=== PATIENT | male | born 1950 | race Caucasian/White ===

== ENCOUNTER → 2021-08-11 07:29 | Outpatient (BNVA) | payer MEDICARE, SELFPAY | PROVIDERS: PCP Family Medicine; Referring Provider Family Medicine; Visit Provider Physical Therapy Assistant | DX: Z86.010 Personal history of colon polyps (principal); Z12.11 Encounter for screening for malignant neoplasm of colon ==

== ENCOUNTER 2021-09-26 07:13 | Day surgery (SDC) | payer MEDICARE, SELFPAY ==
--- NOTE | 2021-09-25 19:36 | W.COLOREPORT ---
Colonoscopy Report Date of procedure: 09/26/21 Pre-op diagnosis general: Serrated A Post-op diagnosis procedure note: other (Pandivertic) Surgeon: Georgia Villalpando Anesthesia Type: General:No Airway Estimated blood loss (mL): 0 Pathology: none sent Complications: None Disposition: same day Prep: Miralax/Dulcolax Retraction Time: 8 mins Procedure Description: After informed consent was obtained the patient was taken to the procedure room and placed in a left decubitous position. Monitors were applied and a time out was done. The patients name, date of , procedure, allergies to medications and metal in their body was reviewed. The patient was then sedated. Once sedated and comfortable a rectal exam was done. External exam was normal. Internal exam revealed a normal sphincter tone and no palpable masses. The prostate nl. The scope was then introduced and retrofelexed. No internal hemorrhoids were identified. The scope was then advanced to the cecum w/out difficulty. The TI and appendiceal orifice were identified. The prep was BB PS 2 in the cecum and right colon, the BPS 3 in all other segments for a total of 8. The scope was then slowly retracted over 8 minutes back into the rectum. There were no polyps visualized today. The mucosa appears pink and healthy with a normal vascular pattern. He does have diverticula; the majority are concentrated in the sigmoid colon, to a moderate degree. However there are a few scattered diverticula that do carry all the way over to the right colon. There are no signs of active bleeding or infection. The scope was removed and the patient was woken up and taken back to Same day surgery in stable condition. The patient tolerated the procedure well and there were no immediate complications. Follow up: The patient should follow up in 5 years unless they develop changes in bowel habits or other new gastrointestinal complaints.
--- NOTE | 2021-09-25 19:37 | HPE_ITS ---
Assessment and Plan Assessment and plan (1) Adenomatous colon polyp: Status: Acute Assessment and plan: Informed consent is obtained for the procedural (explained in simple layman's terms that the pt. and/or family could understand) explaining risks vs benefits and alternatives to the procedure and consequences if we do not do the procedure and need/rational for the procedure. Risks include but are not limited to: bleeding, infection, perforation of esophagus, stomach, colon, small intestines, bronchus or trachea, or PTX. This would necessitate emergency surgery to repair the damage w/ possible ostomy; and other associated complications w/ the required surgery. Also complications of anesthesia including aspiration, MN/CVA/. (2) History of narrow angle glaucoma: (3) Hyperlipidemia: (4) Hypertension: (5) Nicotine dependence: History of Present Illness Narrative: Mr. Graves is a pleasant 71-year-old gentleman who is here today to discuss a colonoscopy.? His last colonoscopy was in 2016 and he was noted to have a sessile serrated adenoma.? He has done well since then.? He denies any melena, hematochezia, abdominal pain, unintentional weight loss or any family history of colon cancer.? He has not had any issues with the anesthesia used in the past. His past medical history is significant for hypertension and hyperlipidemia.? He does still occasionally smoke.? He denies any chest pain or shortness of breath with activity or at rest. Anesthesia: general (without airway) Previous surgical intolerances: No Previous surgical complications: No Pulmonary risk factors: age > 60 Date of surgery: 09/08/21 Planned procedure: Yes Sleep apnea risks: No Can climb one flight of stairs (12-13 steps) in less than 30 seconds without stopping and without symptoms: Yes The surgery proposed for this patient is: low risk Active cardiac conditions: none Active risk factors: none ASA (acetylsalicylic acid): not used Beta blockers: not used Patient is here today for colonoscopy for a sessile serrated in 2016. He did complete the bowel prep. The results are clear yellow effluent. He is not currently having any abdominal pain or nausea. He is not currently having any chest pain, shortness of breath, productive cough, fever or chills, or shortness of breath. He denies any recent trauma or recent ER visits. He denies any changes in his medication or health status to the best of his knowledge. All questions are answered to his satisfaction. And he is stable for proposed procedure today. Informed consent is obtained for the procedural (explained in simple layman's terms that the pt. and/or family could understand) explaining risks vs benefits and alternatives to the procedure and consequences if we do not do the procedure and need/rational for the procedure. Risks include but are not limited to: bleeding, infection, perforation of esophagus, stomach, colon, small intestines, bronchus or trachea, or PTX. This would necessitate emergency surgery to repair the damage w/ possible ostomy; and other associated complications w/ the required surgery. Also complications of anesthesia including aspiration, MN/CVA/. Review of Systems All systems reviewed & are unremarkable except as noted in HPI and below PFSH All Active Problems Adenomatous colon polyp (Acute) Screening for colon cancer (Acute) Medical History Erectile dysfunction History of narrow angle glaucoma Hyperlipidemia Hypertension Nicotine dependence Surgical History History of colonoscopy 2006 in [place] was normal 2016 sessile serrated adenoma. History of excision of pilonidal cyst Social History Smoking/Tobacco Use Status: Current-Occasional Tobacco Type: cigars Smoking risk assessment performed?: Yes Alcohol Intake: former Drug use: Never Substance use type: does not use Do you feel safe at home: Yes Do you feel safe in your relationship?: Yes Meds Allergies and Home Medications Allergies Allergy/AdvReac Type Severity Reaction Status Date / Time No Known Allergies Allergy Unverified 09/26/21 07:24 Home Medications Medication Instructions Recorded Confirmed Type atorvastatin 40 mg tablet 40 mg PO DAILY 12/27/20 09/26/21 History multivitamin 1 tab PO DAILY 12/27/20 09/26/21 History sildenafil 100 mg tablet (Viagra) 100 mg PO DAILY PRN 12/27/20 09/25/21 History aspirin 81 mg capsule,delayed 81 mg PO DAILY 09/25/21 09/25/21 History release Exam Narrative Exam Narrative: PHYSICAL EXAM GENERAL APPEARANCE: Alert, healthy appearance, oriented, in no acute distress SKIN: No rashes.? No breakdown HYDRATION: Well hydrated HEAD, EYES, EARS, NECK, THROAT: Head is normocephalic, pupils equal, round, reactive to light and accommodation, ocular movement intact, sclera clear and no jaundice. ?Dentition intact. No sore throat.? No jaw pain. No thrush NECK: Supple, Trachea midline. No JVD. LUNGS: normal respiration/nl chest excursion. ?Clear to auscultation B/l no R/R/W ?HEART: Regular rate and rhythm, EXTREMITY: No edema or cyanosis? no leg pain, redness, swelling.? No IV infiltration ABDOMEN: non tender to palpation, no masses or distention, no hernias. Normal bowel sounds NEURO: no focal neuro deficits. CBC No Data to Display Comprehensive Metabolic Panel No Data to Display Diabetes results No Data to Display Thyroid results Thyroid Dysfunction Results: No Data to Display
--- NOTE | 2021-09-25 19:53 | PDOC.DSDIS_ITS ---
Discharge Plan Disposition Patient Disposition: HOME Condition: Good Discharge Details Reason For Visit: colon scope Attending Provider: Georgia Villalpando Primary Care Provider: Martha Obregon Home Meds and New Rx's Prescriptions: Continued atorvastatin 40 mg tablet 40 mg PO DAILY sildenafil [Viagra] 100 mg tablet 100 mg PO DAILY PRN Rx Instructions: administer 30 minutes to 4 hours before activity multivitamin Tablet 1 tab PO DAILY aspirin 81 mg Capsule,Delayed Release(Dr/Ec) 81 mg PO DAILY Discontinued bisacodyl [Dulcolax (bisacodyl)] 5 mg tablet,delayed release (DR/EC) 5 mg PO ONCE Qty: 4 0RF Rx Instructions: Take according to provider's instructions for colonoscopy prep. polyethylene glycol 3350 17 gram/dose powder 17 g PO ONCE Qty: 238 0RF Rx Instructions: To be taken as directed by prescriber's office for colonoscopy prep. Discharge Instructions Additional Instructions: DSU Colonoscopy Post- Op Instructions Instructions for Everyone who is given Anesthesia: For your safety, please do the following for the next twenty-four (24) hours: *Do Not operate a motor vehicle (car, truck, motorcycle, etc.) *Do Not drink alcoholic beverages or use any recreational drugs for the first 24 hours or while taking pain medications. The medications in your body may have a reaction that can be dangerous. *Do Not make any important decisions or sign any important papers. Findings: diverticula no polyps Follow up: Repeat colonoscopy in 5 years time if still healthy for anesthesia. 1. No lifting over 20 pounds or strenuous activity for the first 24 hours after your procedure. After 24 hours there are no restrictions on your activity but you may feel fatigued for a few days. 2. After you arrive home you may have a light meal and return to your normal diet as you can tolerate it without feeling sick to your stomach. 3. You may have a bloated, gaseous feeling in your belly (abdomen) after a colonoscopy. Passing gas and belching will help. Walking or lying down on your left side with your knees flexed may relieve the discomfort. Call the office at [phone] (Office) or [phone] (Hospital) right away if you notice any of the following: a.Vomiting of blood or ?coffee ground stools?. b.Rectal bleeding 1Tbsp, blood clots or continuous bleeding. c.Severe belly (abdominal) pain. d.A hard distended belly (abdomen) and an inability to pass gas. 4. Please don?t expect to have a normal BM (bowel movement) for 2-3 days after your procedure. 5. If there are questions regarding the findings of your procedure, please contact your doctor 6. If you are unable to contact your doctor with a problem, contact the hospital at [phone]. 7. Continue all your regular medications unless directed otherwise. I understand the above instructions and have no questions. Signature of Patient or Adult Escort Name of Responsible Adult Escort Signature of Nurse Date/Time Activity:: see above Diet:: see above Discharge Orders Discharge Orders: Discharge Order (Routine); Ordered 09/25/21 Ordered By: Georgia Villalpando DS: Diagnosis Discharge Diagnosis (1) Adenomatous colon polyp: Status: Acute (2) History of narrow angle glaucoma: (3) Hyperlipidemia: (4) Hypertension: (5) Nicotine dependence: (6) Diverticula of colon: Status: Acute
[2021-09-26 07:25] VITALS: BP 152/96; PULSE 107; RESP 18; TEMP 36.3; O2SAT 98
[2021-09-26] MEDS: Lactated Ringers 1,000 ML 80 ML IV (07:47)
--- NOTE | 2021-09-26 08:19 | W.ANESPRE ---
General Info Date of Service Date Performed: 09/26/21 Height: 5 ft 10.5 in Weight: 78.5 kg Body Mass Index (BMI): 24.5 Surgical Procedure: Operation Date: 09/26/21 08:50 Proposed Procedure Side Surgeon p Colonoscopy Georgia Villalpando DO Meds Allergies and Home Medications Allergies Allergy/AdvReac Type Severity Reaction Status Date / Time No Known Allergies Allergy Unverified 09/26/21 07:24 Home Medication Medication Instructions Recorded atorvastatin 40 mg tablet 40 mg PO DAILY 12/27/20 multivitamin 1 tab PO DAILY 12/27/20 sildenafil 100 mg tablet (Viagra) 100 mg PO DAILY PRN 12/27/20 aspirin 81 mg capsule,delayed 81 mg PO DAILY 09/25/21 release Current Visit Medications: Current Medications Generic Name Dose Route Start Last Admin Trade Name Freq PRN Reason Stop Dose Admin Hyoscyamine Sulfate 0.125 mg 09/25/21 19:35 Hyoscyamine 0.125 Mg Sl/Oral/Chew SL DIRECTED PRN Ringer's Solution 1,000 mls @ 80 mls/hr 09/26/21 06:00 09/26/21 07:47 IV 10/25/21 23:59 80 mls/hr INFUSION AKI Administration IV Miscellaneous Supplies 1 each 09/26/21 06:00 Iv Access IV 10/25/21 23:59 DIRECTED AKI Ondansetron HCl 4 mg 09/25/21 19:35 Ondansetron 4 Mg/2 Ml Vial IVP Q4H PRN PRN Nausea / Vomiting Sodium Chloride 0 ml 09/26/21 06:00 Normal Saline Flush 10 Ml Syr IV 10/25/21 23:59 PRN PRN Sodium Chloride 0 ml 09/26/21 06:00 Normal Saline 10 Ml Vial IJ 10/25/21 23:59 DIRECTED PRN Sterile Water 0 ml 09/26/21 06:00 Water,Injection,Sterile 10 Ml Vial IJ 10/25/21 23:59 DIRECTED PRN PFSH Active Problems Active Problems: Problem Status Onset Code Adenomatous colon polyp D12.6 Screening for colon cancer Z12.11 Medical History Medical History Erectile dysfunction History of narrow angle glaucoma Hyperlipidemia Hypertension Nicotine dependence Surgical History Surgical History History of colonoscopy 2006 in [place] was normal 2016 sessile serrated adenoma. History of excision of pilonidal cyst Tobacco Smoking/Tobacco Use Status: Current-Occasional Tobacco Type: cigars Alcohol Alcohol Intake: former Substance Use Substance use: Never Substance use type: does not use Vital Signs and Lab Results Vital Signs Most Recent Vital Signs in EMR: Most Recent Vital Signs Temp Pulse Resp BP Pulse Ox 36.3 C L 107 H 18 152/96 H 98 09/26/21 07:25 09/26/21 07:25 09/26/21 07:25 09/26/21 07:25 09/26/21 07:25 Lab Results Blood Type / Crossmatch: No Data to Display Complete Blood Count: No Data to Display Complete Metabolic Panel: No Data to Display Liver Function Panel: No Data to Display Coagulation Panel: No Data to Display Cardiac Panel: No Data to Display Arterial Blood Gas: No Data to Display Venous Blood Gas: No Data to Display Pancreas Panel: No Data to Display Thyroid Panel: No Data to Display Infectious Disease: No Data to Display Blood Cultures: No Data to Display Toxicology Panel: No Data to Display Anesthesia Assessment and Plan Anesthesia History Personal History: No History of Anesthesia Complications Family History: No Family History of Anesthesia Complications Exercise Tolerance Exercise Tolerance: Metabolic Equivalents>4 Pertinent Negatives Pertinent Negatives: No Symptoms of GERD Cardiac & Pulmonary Exam Cardiac Exam: Normal S1/S2 Heart Sounds Pulmonary Exam: Clear Bilateral Breath Sounds Implantable Cardiac Device Does patient have a Pacemaker or an ICD?: No Airway Exam Known Difficult Airway: No Mallampati Class: 1 Mouth Opening: Normal (> 3cm) Thyromental Distance: Greater than 3 cm Facial Hair: Full Prasad Neck Range of Motion: Full ROM Neck Circumference: Normal Teeth Condition: Normal Dentition ASA Classification ASA Score: ASA 2 Emergency Case?: No NPO Status NPO Status: NPO Clears >2 hours, Solids >8 hours Anesthesia Plan Resuscitation Status: Full Code Anesthesia Technique: General Anesthesia Airway Planned: Natural Airway Monitors Used: Standard Monitors
[2021-09-26 08:21] VITALS: BMI 24.5
[2021-09-26 09:32] VITALS: BP 102/69; PULSE 76; RESP 14; TEMP 36.6; O2SAT 95
[2021-09-26 10:05] VITALS: BP 110/72; PULSE 80; RESP 16; TEMP 36.5; O2SAT 96
--- NOTE | 2021-09-26 10:35 | W.ANESPOSTOP ---
Postoperative Evaluation Date, Time and Location Date Performed: 09/26/21 Time Performed: 10:35 Patient Location: Day Surgery Unit Vital Signs Most Recent Imported Vital Signs: Most Recent Vital Signs Temp Pulse Resp BP Pulse Ox 36.5 C 80 16 110/72 96 09/26/21 10:05 09/26/21 10:05 09/26/21 10:05 09/26/21 10:05 09/26/21 10:05 Pain Score Most Recent Pain Score: Most Recent Pain Score Pain Level 0 09/26/21 10:05 Assessment Mental Status: Awake (Alert & Oriented to Patient Baseline) Airway and Respiratory Function: Patent airway with normal (patient baseline) respiratory exam Cardiovascular Function: Hemodynamically Stable Hydration Status: Adequately Hydrated Nausea & Vomiting: No Nausea or Vomiting Pain: Pt. Denies Any Pain Peripheral Nerve Block: Patient did not receive a nerve block
== END 2021-09-26 10:36 | disposition home or self-care (01) ==
PROVIDERS: PCP Family Medicine; Visit Provider Surgery
PROC: 0DJD8ZZ Inspection of Lower Intestinal Tract, Via Natural or Artificial Opening Endoscopic (ICD-10-PCS; CPT 45378; principal; 2021-09-26 08:45)
DX: Z12.11 Encounter for screening for malignant neoplasm of colon (principal); Z86.010 Personal history of colon polyps; I10 Essential (primary) hypertension; E78.5 Hyperlipidemia, unspecified; F17.210 Nicotine dependence, cigarettes, uncomplicated; K57.30 Diverticulosis of large intestine without perforation or abscess without bleeding
CPT/HCPCS: G0105

== ENCOUNTER 2023-08-02 15:36 | Outpatient (REF) | payer MEDICARE, SELFPAY ==
[2023-08-02 15:16] LABS: Bilirubin Negative (Negative); Blood Moderate (Negative); Clarity Clear (Clear); Glucose Negative (Negative); Ketones Negative (Negative); Leukocyte Esterase Negative (Negative); Nitrite Negative (Negative); Urobilinogen 0.2 mg/dL (Up to 0.2); pH 5.5 (5-8)
[2023-08-02 15:42] LABS: Epithelial Cells Rare HPF (Negative); RBC 0-2 HPF (0-2); WBC 0-2 HPF (0-5)
[2023-08-02 15:43] LABS: Bacteria Negative HPF (Negative); C & S Indicated? No; Casts Negative LPF (Negative); Crystals Negative HPF (Negative); Mucus Negative (Negative)
== END 2023-08-02 15:37 | disposition home or self-care (01) ==
LOC: LBN 15:36
PROVIDERS: PCP Family Medicine; Visit Provider Family Medicine
DX: R31.21 Asymptomatic microscopic hematuria (principal)
CPT/HCPCS: 81003; 81015

== ENCOUNTER → 2023-08-14 04:30 | Outpatient (CLI) | payer MEDICARE, SELFPAY ==
--- NOTE | 2023-08-14 | DI.US_ITS ---
Exam(s) US RENAL EXAM: US RENAL CLINICAL HISTORY: ASYMPTOMATIC MICROSCOPIC HEMATURIA, R31.21. TECHNIQUE: Curry scale, color and spectral Doppler were used. COMPARISON: No exams were available for comparison FINDINGS: Right kidney: 12.1cm Echogenicity: Normal Hydronephrosis: No Cyst or mass: No Nephrolithiasis: No Left kidney: 11.1cm Echogenicity: Normal Hydronephrosis: No Cyst or mass: No Nephrolithiasis: No Bladder:Normal. Both ureteral jets were visualized. Prevoid vol:228 cc Postvoid vol:31 cc Prostate enlarged with volume of 45 cc. IMPRESSION: Negative renal ultrasound. Enlarged prostate. Mildly elevated postvoid residual. DATA REPOSITORY:
== END ==
PROVIDERS: PCP Family Medicine; Visit Provider Family Medicine
DX: R31.21 Asymptomatic microscopic hematuria (principal)
CPT/HCPCS: 76770

== ENCOUNTER → 2024-04-07 12:57 | Outpatient (BNVA) | payer MEDICARE, SELFPAY | PROVIDERS: PCP Family Medicine; Referring Provider Family Medicine; Visit Provider Nurse Practitioner Gerontology | DX: R31.21 Asymptomatic microscopic hematuria (principal); N42.89 Other specified disorders of prostate | CPT/HCPCS: 81003; 99215 ==

== ENCOUNTER 2024-04-07 16:21 | Outpatient (CLI) | payer MEDICARE, SELFPAY ==
[2024-04-07 22:46] LABS: PSA, Diagnostic 8.5 ng/mL (<=6.5)
== END 2024-04-07 16:22 | disposition home or self-care (01) ==
LOC: LBO 16:26
PROVIDERS: PCP Family Medicine; Visit Provider Nurse Practitioner Gerontology
DX: R31.21 Asymptomatic microscopic hematuria (principal); N42.89 Other specified disorders of prostate
CPT/HCPCS: 36415; 81003; 99215; 84153

== ENCOUNTER 2024-04-07 18:29 | Outpatient (REF) | payer MEDICARE, SELFPAY ==
[2024-04-07 16:29] LABS: Bilirubin Negative (Negative); Blood Small (Negative); Clarity Clear (Clear); Glucose Negative (Negative); Ketones Negative (Negative); Leukocyte Esterase Negative (Negative); Nitrite Negative (Negative); Specific Gravity 1.015 (1.005-1.025); Urobilinogen 0.2 mg/dL (Up to 0.2); pH 5.5 (5-8)
[2024-04-07 16:40] LABS: Bacteria Negative HPF (Negative); C & S Indicated? No; Crystals Negative HPF (Negative); Epithelial Cells Negative HPF (Negative); Mucus Negative (Negative); WBC 0-2 HPF (0-5)
== END 2024-04-07 18:30 | disposition home or self-care (01) ==
LOC: LBN 18:29
PROVIDERS: PCP Family Medicine; Visit Provider Nurse Practitioner Gerontology
DX: R31.21 Asymptomatic microscopic hematuria (principal)
CPT/HCPCS: 81003; 81015

== ENCOUNTER → 2024-05-07 07:43 | Outpatient (BNVA) | payer MEDICARE, SELFPAY | PROVIDERS: PCP Family Medicine; Referring Provider Family Medicine; Visit Provider Nurse Practitioner Gerontology | DX: N42.89 Other specified disorders of prostate (principal); R31.21 Asymptomatic microscopic hematuria; R97.20 Elevated prostate specific antigen [PSA] | CPT/HCPCS: 99213 ==

== ENCOUNTER 2024-05-14 02:13 | Outpatient (CLI) | payer MEDICARE, SELFPAY ==
[2024-05-14 08:14] LABS: CREATININE 1.3 mg/dL (0.70-1.30); Estimated GFR 58.37 (mL/min/1.73m2)
[2024-05-14] MEDS: Omnipaque 350 MG/ML 100 ML BTL IJ (08:36)
[2024-05-14] MEDS: Normal Saline - Diluent 50 ML VIAL IJ (08:39)
--- NOTE | 2024-05-14 09:00 | DI.CT_ITS ---
Exam(s) CT ABDOMEN PELVIS WO/W EXAM: CT ABDOMEN PELVIS WO/W CLINICAL HISTORY: hematuria,r31.9. TECHNIQUE: Imaging Protocol: Axial computed tomography images with coronal and sagittal reformatted images were created and reviewed. Images were performed from the lung bases through the ischial tuberosities before IV contrast and fol lowing IV contrast using a 70 second delay, followed by 7 minutes delayed images. CONTRAST MATERIAL: Intravenous: Omnipaque 350 Contrast volume:100 cc Oral: no COMPARISON: US US RENAL from 08/14/2023 FINDINGS: Lung Bases: Normal where visualized. Liver: Normal density. Multiple liver cysts. No suspicious mass. Gallbladder and biliary tract: No biliary dilation. Pancreas: Normal density, no abnormal calcifications or inflammatory process. Spleen: Normal. Kidneys: Normal size, contour and axis. No radiodense stones or obstructive uropathy. No suspicious m asses seen. Adrenal glands: No masses seen. Lymph nodes: Within normal limits. Abdominal Aorta: Abdominal portion non-dilated. Atherosclerotic changes. Soft tissues: Unremarkable. Bladder: Bladder is suboptimally distended. The the delayed images show thickened and trabeculated b ladder wall. No visible mass.No evidence of calculi. Bowel: Stomach unremarkable. No obstruction or bowel wall thickening. Appendix normal. Sigmoid dive rticulosis. Peritoneal cavity: No ascites, collection or mesenteric inflammatory response. Bones: Unremarkable for age.. Reproductive organs: Enlarged prostate. IMPRESSION: No suspicious renal mass. No evidence of urinary tract calculi. No evidence of hydronephrosis. Enlarged prostate. Thickened trabeculated bladder wall. No visible bladder mass. RADIATION DOSE DELIVERED: 1,240.17mGy.cm Total DLP DATA REPOSITORY: All CT scans at this facility are submitted to the National Radiology Data Registry (NRDR) Dose Index Registry (DIR) with the [employer] ([employer]). RADIATION OPTIMIZATION: All CT scans at this facility use at least one of these dose optimization te chniques: automated exposure control; mA and/or kV adjustment per patient size (includes targeted exa ms where dose is matched to clinical indication); or iterative reconstruction.
[2024-05-14 21:48] LABS: PSA, Diagnostic 8.8 ng/mL (<=6.5)
== END 2024-05-14 02:33 ==
LOC: DI 02:13
PROVIDERS: PCP Family Medicine; Visit Provider Nurse Practitioner Gerontology
DX: R97.20 Elevated prostate specific antigen [PSA] (principal); N42.89 Other specified disorders of prostate; R31.9 Hematuria, unspecified
CPT/HCPCS: 74178; 82565; 84153; J3490

== ENCOUNTER → 2024-05-25 15:58 | Outpatient (BNVA) | payer MEDICARE, SELFPAY | PROVIDERS: PCP Family Medicine; Referring Provider Family Medicine; Visit Provider Nurse Practitioner Gerontology | DX: R31.21 Asymptomatic microscopic hematuria (principal); N42.89 Other specified disorders of prostate; R97.20 Elevated prostate specific antigen [PSA] | CPT/HCPCS: 99213 ==

== ENCOUNTER 2024-06-02 11:43 | Emergency (ER) | payer MEDICARE, SELFPAY ==
[2024-06-02 12:08] VITALS: BP 193/103; PULSE 108; RESP 16; TEMP 36.3; O2SAT 98
--- NOTE | 2024-06-02 14:00 | DI.CT_ITS ---
Exam(s) CT ABDOMEN PELVIS W EXAM: CT ABDOMEN PELVIS W CLINICAL HISTORY: BLOOD IN STOOL TECHNIQUE: Imaging Protocol: Axial computed tomography images with coronal and sagittal reformatted images were created and reviewed. CONTRAST MATERIAL: Intravenous: Omnipaque 350 Contrast volume:75 mL Oral: No COMPARISON: CT CT ABDOMEN PELVIS WO/W from 05/14/2024 FINDINGS: ABDOMEN: Lung Bases: No acute abnormality. Liver: Normal density. There are innumerable hepatic cysts. No suspicious hepatic masses are seen. Portal, Superior Mesenteric, and Splenic Veins: Unremarkable. Gallbladder and Biliary Tract: No radiodense calculus or dilation. Pancreas: Normal density, no abnormal calcifications or inflammatory process. Spleen: Normal. Adrenals: No masses seen. Kidneys: Normal size, contour and axis. No radiodense stones or obstructive uropathy. There are few t iny hypodensities in the kidneys bilaterally. They are too small for further characterization but li cortney reflect small cysts. No follow-up is recommended. Abdominal Aorta: Abdominal portion non-dilated. Atherosclerotic calcification is present. Bowel: There is diverticulosis of the colon without evidence of acute diverticulitis. There is a lar ge duodenal diverticulum. There is no bowel wall thickening or bowel obstruction. Appendix is unrem arkable. Peritoneal Cavity: No ascites, collection or mesenteric inflammatory response. No free air. Lymph Nodes: Within normal limits. Bones: Within normal limits for the patient's age. Soft Tissues: There is a small fat containing umbilical hernia. PELVIS: Bladder: Symmetric distention, no gross wall thickening. Reproductive Organs: The prostate gland is enlarged. There are surgical clips seen in the scrotum hurst ggesting prior vasectomy. Lymph Nodes: Within normal limits. Bones: Within normal limits for the patient's age. IMPRESSION: No acute abdominal or pelvic process. RADIATION DOSE DELIVERED: 405.07mGy.cm Total DLP DATA REPOSITORY: All CT scans at this facility are submitted to the National Radiology Data Registry (NRDR) Dose Index Registry (DIR) with the [employer] (ACR). RADIATION OPTIMIZATION: All CT scans at this facility use at least one of these dose optimization te chniques: automated exposure control; mA and/or kV adjustment per patient size (includes targeted exa ms where dose is matched to clinical indication); or iterative reconstruction.
[2024-06-02 14:41] LABS: Abs Immature Grans 0.05 10^3/uL (0.0-0.06); Absolute Basophil Count 0.04 10^3/uL (0.0-0.2); Absolute Lymphocyte Count 0.97 10^3/uL (1.2-3.4); Absolute Neutrophil Count 12.85 10^3/uL (1.2-6.7); Basophils % 0.3 %; HCT 47.3 % (40.0-50.0); HGB 15.5 g/dL (13.5-17.5); Immature Grans % 0.3 %; Lymphocytes % 6.8 %; MCH 29.5 pg (27.0-33.0); MCHC 32.8 % (32.0-36.0); MCV 90 fL (80-95); MPV 9.5 fL (8.0-11.0); Monocytes % 2.8 %; Neutrophils % 89.8 %; Platelet Count 254 10^3/uL (130-400); RBC 5.25 10^6/uL (4.36-5.78); RDW 12.7 % (11.8-14.1); RDW-SD 41.7 fL; WBC 14.31 10^3/uL (4.4-10.8)
[2024-06-02 14:55] LABS: ALT 32 U/L (16-63); AST 23 U/L (15-37); Albumin 4.2 g/dL (3.4-5.0); Alkaline Phosphatase 75 U/L (46-116); Anion Gap 8.2 mmol/L (3-11); BUN 19 mg/dL (7-18); Bilirubin, Total 0.5 mg/dL (0.2-1.0); CO2 28.8 mmol/L (21.0-32.0); CREATININE 0.9 mg/dL (0.70-1.30); Calcium 9.6 mg/dL (8.5-10.1); Chloride 105 mmol/L (98-107); Estimated GFR 90.74 (mL/min/1.73m2); Glucose 94 mg/dL (74-106); Lipase 51 U/L (<78); Potassium 4.1 mmol/L (3.5-5.1); Sodium 142 mmol/L (136-145)
[2024-06-02 14:56] LABS: Prothrombin Time 9.9 sec (9.1-11.1)
[2024-06-02] MEDS: Omnipaque 350 MG/ML 100 ML BTL IJ (16:17)
[2024-06-02] MEDS: Normal Saline - Diluent 50 ML VIAL IJ (16:17)
[2024-06-02 16:50] VITALS: BP 196/89; PULSE 95; RESP 16; TEMP 36.6; O2SAT 100
--- NOTE | 2024-06-02 19:26 | W.ED.GENAD ---
Discharge Plan Disposition Patient Disposition: Home Condition: Stable Discharge Details Clinical Impression: Bloody diarrhea Primary Care Provider: Catarina Ferrara ED Provider: Carmella Strong Home Meds and New Rx's Prescriptions: No Action atorvastatin 40 mg tablet 40 mg PO DAILY sildenafil [Viagra] 100 mg tablet 100 mg PO DAILY PRN Rx Instructions: administer 30 minutes to 4 hours before activity multivitamin Tablet 1 tab PO DAILY Discharge Instructions Additional Instructions: Symptoms today are likely secondary to the food that you ate last night. Your CT does not show an acute abnormality your blood work is stable. You do have a mild elevation in your white blood cell count, so if you start to develop pain, persistent diarrhea or fevers, please follow-up with your PCP for reevaluation. Discharge Data Discharge Date/Time-TO BE ENTERED AT DEPARTURE: 06/02/24 16:51 HPI General Date/Time Provider Initiated Documentation: 06/02/24 12:23. Limitations to Documentation: no limitations. Information obtained by: patient. HPI Narrative: 74-year-old gentleman without significant past medical history presents for evaluation of bloody stool. He reports that last night he had very spicy [place] food and this morning he had an episode of slightly pink-coloration of the toilet water. He reports that the stool was pretty watery, but that the stool itself was brown. . No pain or cramping. No fever. He reports that the symptoms returned later on when he had a sudden urge to have a bowel movement and then he noted that he had some large amount watery stool that was again very bright red. No blood clots. No pain in his rectum with the bowel movement. He denies any abdominal pain fever or chills. He says today that he has not had any additional bowel movements since that time. Related Data Home Medications ?Medication ?Instructions ?Recorded ?Confirmed atorvastatin 40 mg tablet 40 mg PO DAILY 12/27/20 06/02/24 multivitamin 1 tab PO DAILY 08/21/23 06/02/24 sildenafil 100 mg tablet (Viagra) 100 mg PO DAILY PRN 08/21/23 06/02/24 Allergies Allergy/AdvReac Type Severity Reaction Status Date / Time No Known Allergies Allergy Unverified 06/02/24 12:11 General Stated Complaint: GI Bleed EARLINE: 3 Exam Narrative Exam Narrative: Review of Systems: All systems reviewed & are unremarkable except as noted in HPI and below Well-developed, no acute distress NCAT PERRL, normal conjunctiva RRR Unlabored respiratory effort clear bilaterally Nondistended abdomen soft nontender abdomen Course Vital Signs Vital signs: Vital Signs Temperature 36.3 C L 06/02/24 12:08 Pulse 108 H 06/02/24 12:08 Respiratory Rate 16 06/02/24 12:08 Blood Pressure 193/103 H 06/02/24 12:08 Pulse Oximetry 98 06/02/24 12:08 Temperature 36.6 C 06/02/24 16:50 Temperature Source Oral 06/02/24 12:08 Pulse 95 H 06/02/24 16:50 Respiratory Rate 16 06/02/24 16:50 Blood Pressure 196/89 H 06/02/24 16:50 Blood Pressure Position Sitting 06/02/24 12:08 Pulse Oximetry 100 06/02/24 16:50 Oxygen Delivery Method Room Air 06/02/24 12:08 Oxygen Flow Rate 0 06/02/24 12:08 Pain Level 1 06/02/24 16:50 Lab/Test Results Lab/Test Results: Laboratory Tests Range/Units 06/02/24 14:28 WBC (4.4-10.8) 10^3/uL 14.31 H RBC (4.36-5.78) 10^6/uL 5.25 Hgb (13.5-17.5) g/dL 15.5 Hct (40.0-50.0) % 47.3 MCV (80-95) fL 90 MCH (27.0-33.0) pg 29.5 MCHC (32.0-36.0) % 32.8 RDW (11.8-14.1) % 12.7 Plt Count (130-400) 10^3/uL 254 MPV (8.0-11.0) fL 9.5 Immature Gran % % 0.3 Neutrophils % % 89.8 Lymphocytes % % 6.8 Monocytes % % 2.8 Eosinophils % % 0.0 Basophils % % 0.3 Nucleated RBC % (0.0-0.3) % 0.0 Absolute Neutrophils (1.2-6.7) 10^3/uL 12.85 H Absolute Lymphocytes (1.2-3.4) 10^3/uL 0.97 L Absolute Monocytes (0.1-0.8) 10^3/uL 0.40 Absolute Eosinophils (0.0-0.7) 10^3/uL 0.00 Absolute Basophils (0.0-0.2) 10^3/uL 0.04 PT (9.1-11.1) sec 9.9 INR (0.9-1.1) 1.0 Sodium (136-145) mmol/L 142 Potassium (3.5-5.1) mmol/L 4.1 Chloride (98-107) mmol/L 105 Carbon Dioxide (21.0-32.0) mmol/L 28.8 Anion Gap (3-11) mmol/L 8.2 BUN (7-18) mg/dL 19 H Creatinine (0.70-1.30) mg/dL 0.9 Est GFR (CKD-EPI 2020) (mL/min/1.73m2) 90.74 Glucose (74-106) mg/dL 94 Calcium (8.5-10.1) mg/dL 9.6 Total Bilirubin (0.2-1.0) mg/dL 0.5 AST (15-37) U/L 23 ALT (16-63) U/L 32 Alkaline Phosphatase (46-116) U/L 75 Total Protein (6.4-8.2) g/dL 8.0 Albumin (3.4-5.0) g/dL 4.2 Lipase (<78) U/L 51 ABO/Rh A Positive Antibody Screen NEGATIVE Medical Decision Making Emergent evaluation of bright red blood per rectum. Symptoms are not associated with abdominal cramping or fever. He did have spicy food which she states does usually cause him to have some diarrhea . He has a benign physical examination at this time. He has some mild hypertension which is what he was at his PCP office for this morning. Lab work was obtained and there were some mild leukocytosis noted, no anemia. No electrolyte derangement. Renal and liver function within normal limits. Lipase not elevated. A CT scan was obtained and this did not demonstrate any acute abnormality. The patient has not had any additional diarrhea since his time in the emergency department. Has not developed abdominal pain or fever. At this time he is stable for discharge home. Recommend monitoring symptoms, return precautions advised and recommend following up with PCP as needed. Quality:SDOH Health Related Social Needs: No Data to Display PFSH All Active Problems (Updated 06/02/24 @ 16:41 by Carmella Strong MD) Bloody diarrhea (Acute) Elevated PSA (Acute) Asymmetric prostate (Acute) Diverticula of colon (Acute) 2021 pandiverticula Adenomatous colon polyp (Acute) Screening for colon cancer (Acute) Medical History (Updated 06/02/24 @ 16:41 by Carmella Strong MD) Asymptomatic microscopic hematuria History of narrow angle glaucoma Nicotine dependence Erectile dysfunction Hypertension Hyperlipidemia Surgical History History of colonoscopy 2005 in [place] was normal 2016 sessile serrated adenoma. History of excision of pilonidal cyst Social History Smoking/Tobacco Use Status: Current-Occasional Tobacco Type: cigars Smoking risk assessment performed?: Yes Alcohol Intake: former Drug use: Never Substance use type: does not use Do you feel safe at home: Yes Do you feel safe in your relationship?: Yes
== END 2024-06-02 16:51 | disposition home or self-care (01) ==
PROVIDERS: Emergency Provider Emergency Medicine; PCP Family Medicine
DX: K92.1 Melena (principal); I10 Essential (primary) hypertension; E78.5 Hyperlipidemia, unspecified; F17.290 Nicotine dependence, other tobacco product, uncomplicated
CPT/HCPCS: 80053; 83690; 86850; 86900; 86901; 99285; 74177; 85025; 85610; 99284; J3490

== ENCOUNTER → 2024-07-07 08:47 | Outpatient (BNVA) | payer MEDICARE, SELFPAY | PROVIDERS: PCP Family Medicine; Referring Provider Family Medicine; Visit Provider Nurse Practitioner Gerontology | DX: R97.20 Elevated prostate specific antigen [PSA] (principal); N42.89 Other specified disorders of prostate | CPT/HCPCS: 99215 ==

== ENCOUNTER → 2024-07-14 08:53 | Outpatient (BNVA) | payer MEDICARE, SELFPAY | PROVIDERS: PCP Family Medicine; Referring Provider Family Medicine; Visit Provider Urology | DX: D07.5 Carcinoma in situ of prostate | CPT/HCPCS: 55700; 76872 ==

== ENCOUNTER 2024-07-14 11:20 | Outpatient (REF) | payer MEDICARE, SELFPAY ==
--- NOTE | 2024-07-14 09:20 | PROST_PTH ---
PATIENT: Gustavo Graves JR LOC: [facility] U#:[id number] AGE/SX: 74/M ROOM: RE07/14/[address]: Sudhakar Mccullough MD : 1950 BED: DIS: 07/14/2024 SPEC #: [id number] RECD: 07/14/24 12:47 STATUS: AMARIChuck REQ #: [id number] CONCETTA: 07/14/24 09:[address]: Sudhakar Mccullough DEPT: Surgical Specimen RECD BY: Yaz Horowitz ENTERED: 07/14/24 12:49 SP TYPE: PROST OTHR DR: Catarina Ferrara Tissues: 1 - PROSTATE NEEDLE BIOPSY 2 - PROSTATE NEEDLE BIOPSY 3 - PROSTATE NEEDLE BIOPSY 4 - PROSTATE NEEDLE BIOPSY 5 - PROSTATE NEEDLE BIOPSY 6 - PROSTATE NEEDLE BIOPSY 7 - PROSTATE NEEDLE BIOPSY 8 - PROSTATE NEEDLE BIOPSY 9 - PROSTATE NEEDLE BIOPSY 10 - PROSTATE NEEDLE BIOPSY 11 - PROSTATE NEEDLE BIOPSY 12 - PROSTATE NEEDLE BIOPSY Procedures: GROSS AND MICRO LEVEL 4 Comments: [id number]
== END 2024-07-14 11:21 | disposition home or self-care (01) ==
LOC: LBN 11:20
PROVIDERS: PCP Family Medicine; Visit Provider Urology
DX: Z12.5 Encounter for screening for malignant neoplasm of prostate; D07.5 Carcinoma in situ of prostate
CPT/HCPCS: 88305

== ENCOUNTER → 2024-07-29 11:04 | Outpatient (BNVA) | payer MEDICARE, SELFPAY | PROVIDERS: PCP Family Medicine; Referring Provider Family Medicine; Visit Provider Nurse Practitioner Gerontology | DX: N42.31 Prostatic intraepithelial neoplasia (principal); N42.89 Other specified disorders of prostate; R97.20 Elevated prostate specific antigen [PSA]; R31.21 Asymptomatic microscopic hematuria | CPT/HCPCS: 99214 ==

== ENCOUNTER 2024-10-20 03:46 | Outpatient (CLI) | payer MEDICARE, SELFPAY ==
[2024-10-20 19:39] LABS: PSA, Diagnostic 8.9 ng/mL (<=6.5)
== END 2024-10-20 03:47 | disposition home or self-care (01) ==
LOC: LBO 03:46
PROVIDERS: PCP Family Medicine; Visit Provider Nurse Practitioner Gerontology
DX: R97.20 Elevated prostate specific antigen [PSA] (principal); N42.89 Other specified disorders of prostate; N42.31 Prostatic intraepithelial neoplasia
CPT/HCPCS: 36415; 84153

== ENCOUNTER → 2024-11-03 08:47 | Outpatient (BNVA) | payer MEDICARE, SELFPAY | PROVIDERS: PCP Family Medicine; Referring Provider Family Medicine; Visit Provider Urology | DX: R31.21 Asymptomatic microscopic hematuria (principal); R97.20 Elevated prostate specific antigen [PSA]; N40.0 Benign prostatic hyperplasia without lower urinary tract symptoms | CPT/HCPCS: 81002; 52000 ==